=== PATIENT | female | born 1960 | race Caucasian/White ===

== ENCOUNTER 2023-06-21 03:44 | Inpatient (IN) ==
[2023-06-21] MEDS ORDERED: ACETAMINOPHEN 1,000 MG/100 ML VIAL IV STA (03:59)
[2023-06-21] MEDS ORDERED: FAMOTIDINE 20MG IV PUSH 20 MG/5 ML SYR IV STA (03:59)
[2023-06-21] MEDS ORDERED: SODIUM CHLORIDE 0.9% 1,000 ML IV ONE (03:59)
--- NOTE | 2023-06-21 04:04 | Emergency Department Note ---
Impression & Plan Abdominal pain, Nausea & vomiting, Bowel obstruction ED Provider Note ED Provider Note NAME: SWAPNA CESPEDES AGE:63 SEX: Female : 1960 ARRIVES VIA: private vehicle INFORMANT: Patient ED PROVIDER(s): Elaina Encinas DO CHIEF COMPLAINT: abd pain, nausea and vomiting HPI: This is a 63-year-old female who presents emergency department due to concern for abdominal pain, nausea and vomiting. Patient states she felt well earlier in the day yesterday however symptoms began at 9 PM with a sudden upper abdominal discomfort followed by nausea vomiting. Patient states she had been vomiting over the last several hours approximately every 15 minutes or so. She denies noting any blood. She states no recent change in bowel movements and no diarrhea since her symptoms began. She states she does have a history of GERD, however no other GI problems. She states a potassium supplement was recently added to her medications, no other changes. She states there is someone who lives in her [facility] who does have COVID. No other recent URI symptoms. She states now the abdominal discomfort feels lower. No radiation into the back. PAST MEDICAL HISTORY:See Below PAST SURGICAL HISTORY:See Below FAMILY HISTORY:See Below SOCIAL HISTORY:See Below HOME MEDICATIONS:See Below ALLERGIES:See Below VITALS:See Below PHYSICAL EXAMINATION: GENERAL: alert, well appearing, well nourished, no distress, non-toxic EYE EXAM: normal conjunctiva, PERRL and EOM's grossly intact OROPHARYNX: no exudate, no erythema, lips, buccal mucosa, and tongue normal and mucous membranes are moist NECK: supple, no nuchal rigidity, no adenopathy, non-tender LUNGS: Clear to auscultation. Normal chest wall mechanics, no w/r/r HEART: no murmurs, S1 normal and S2 normal ABDOMEN: abdomen soft, discomfort with palpation of LLQ, normo-active bowel sounds, no masses, no rebound or guarding. BACK: Back is symmetrical on inspection and there is no deformity, no midline tenderness, no CVA tenderness. SKIN: no rashes, petechiae, orbruising UPPER EXTREMITIES: upper extremities are grossly normal. FROM, nml pulses b/l. LOWER EXTREMITIES: No pitting edema. FROM, nml pulses b/l. NEURO EXAM: Normal sensorium, cranial nerves II-XII grossly intact, normal speech, no facial droop,nogross weakness of arms, no gross weakness of legs. Gross sensation intact. No ataxia. Vital Signs: reviewed and remarkable Differential Diagnosis: viral syndrome, food borne illness, gastritis, peptic ulcer disease, GERD, gallbladder disease, pancreatitis, small bowel obstruction, acute coronary syndrome, pericarditis, ischemic bowel, irritable bowel syndrome, diverticulitis, malignancy, hernia, urinary tract infection, perforation, as well as others were considered MEDICAL DECISION MAKING: This is a 63-year-old female presents emergency room due to concern for acute onset of abdominal pain, nausea and vomiting. She was afebrile vital signs stable despite being ill appearing and holding an emesis bag. Labs drawn and sent, IV established, EKG and KUB performed bedside interpreted by me and patient monitored on telemetry. She was started on IV fluids and given IV Tylenol and IV famotidine initially. Patient did have some recurrence of nausea and IV Zofran was added. Due to unclear etiology of her symptoms initially patient was additionally sent for CT of the abdomen and pelvis. CT revealed a bowel obstruction with concern for 2 transition points. I did contact general surgery on-call due to concern for possible closed-loop obstruction. They felt patient could be started on typical conservative management and monitored and should there be any changes or worsening symptoms they would reevaluate the patient. Case discussed with on-call [facility] hospitalist team for additional evaluation and management. NG tube inserted at bedside. Patient continued on gentle IV fluid hydration. Patient updated on all results and plan, she verbalized understanding and was in agreement. Consultation(s): 0748: Discussed with Dr. Dalton, gen surg. Recommends NG tube and trial of conservative therapy. I did read him CT report and we discussed patient presentation and exam, vital signs, and labs. 0802: Discussed with Dr. Beckman, [facility] hospitalist team, for additional evaluation and mgmt. ER Treatment Provided: See below Diagnostics Interpreted By Me: -ECG: Normal sinus at 89, rightward axis, normal intervals, no acute ST/T wave changes -Cardiac Monitoring: An order was placed for continuous cardiac monitoring. The monitor shows a rate of 88 with normal sinus rhythm. -Laboratory studies: As stated above and show below. -Imaging studies: KUB: no def SBO Triage Nursing Note Reviewed Prior/Outside Records Reviewed Past Med/Surg History Medical History Carotid stenosis, left Falls frequently Prediabetes Orthostatic hypotension Sleep apnea Arthritis Asthma Environmental and seasonal allergies Hypothyroidism Dyslipidemia Hypertension Surgical History History of left-sided carotid endarterectomy History of bilateral tubal ligation H/O sinus surgery 2004 H/O: hysterectomy 2019 Ovarian cyst Ovarian cyst removed 08-26-19 History of appendectomy History of total abdominal hysterectomy and bilateral salpingo-oophorectomy H/O wisdom tooth extraction Family History Father , age 56 from [place] Heart disease Coronary heart disease Sister Hypertension Mother , age 46; Lupus nephritis?? 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 Beliefs That Will Affect Care: None marital status: / Current Living Situation: Alone Current Living Situation Comment: Home with dog on 2nd floor of condo, handicap accessible current occupational status: retired 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; was in [employer] 7 years How many Children do You have: 0 Other Information That Helps Us Care for You: No Feels Safe at Home: Yes Safety Concerns: Feels Safe At This Time Diet: vegetarian Assistive Devices: None Allergies Allergies Allergy/AdvReac Type Severity Reaction Status Date / Time adhesive Allergy blistering Unverified 06/21/23 08:49 on skin [id number] Reductase Allergy liver Unverified 06/21/23 08:49 Inhibitor enzymes go "crazy" Home Meds Home Medications Medication Instructions Recorded Confirmed aspirin 81 mg tablet,delayed 81 mg PO DAILY 12/02/19 06/21/23 release cholecalciferol (vitamin D3) 50 100 mcg PO DAILY 12/02/19 06/21/23 mcg (2,000 unit) capsule (Vitamin D3) diclofenac sodium 1 % topical gel 2 gm topical QID PRN Pain 12/02/19 06/21/23 ezetimibe 10 mg tablet 10 mg PO DAILY 12/02/19 06/21/23 fluticasone propionate 50 1 sprays intranasal DAILY 12/02/19 06/21/23 mcg/actuation nasal spray,suspension losartan 100 1 tab PO DAILY 12/02/19 06/21/23 mg-hydrochlorothiazide 25 mg tablet menthol 4 % topical gel (Biofreeze 1 appln topical TID PRN Pain 12/02/19 06/21/23 (menthol)) Saline Mist See Rx Instructions .Route .COMPLEX 06/21/23 06/21/23 Vitamin B12 Liquid 0.5 mg PO DAILY 06/21/23 06/21/23 bupropion HCl 150 mg 24 hr tablet, 150 mg PO QAM 06/21/23 06/21/23 extended release dexlansoprazole 30 mg 30 mg PO DAILY 06/21/23 06/21/23 capsule,biphase delayed release (Dexilant) levothyroxine 125 mcg tablet 125 mcg PO DAILY 06/21/23 06/21/23 multivitamin with minerals 1 tab PO DAILY 06/21/23 06/21/23 (Hair,Skin and Nails tablet) Previous Rx's Medication Instructions Recorded hydrocodone 5 mg-acetaminophen 325 1 - 2 tab PO Q6H PRN pain #12 tabs 04/17/20 mg tablet Results & Data (ED) Vital Signs Vital Signs - 24 hr 06/21/23 04:49 06/21/23 06:30 06/21/23 07:00 Pulse Rate 88 84 Pulse Rate from SpO2 Sensor 84 Respiratory Rate 16 Blood Pressure 155/86 H 151/73 H Blood Pressure Mean 109 114 Pulse Oximetry 93 Oxygen Delivery Method Room Air 06/21/23 07:00 06/21/23 07:30 06/21/23 07:31 Pulse Rate 80 84 Pulse Rate from SpO2 Sensor Respiratory Rate 16 20 Blood Pressure 149/102 H Blood Pressure Mean 128 Pulse Oximetry 96 96 Oxygen Delivery Method Room Air 06/21/23 07:31 Pulse Rate 89 Pulse Rate from SpO2 Sensor 88 Respiratory Rate 20 Blood Pressure Blood Pressure Mean Pulse Oximetry 95 Oxygen Delivery Method Laboratory Data 06/21/23 04:09 06/21/23 04:09 Lab Results 06/21/23 06/21/23 Range/Units 04:09 04:12 WBC 12.67 H (4.8-10.8) K/ul RBC 5.23 (4.20-5.40) M/uL Hgb 13.8 (12.0-16.0) g/dl Hct 42.1 (37.0-47.0) % MCV 80.5 (80.0-100.0) fL MCH 26.4 (25.0-34.0) pg MCHC 32.8 (32.0-36.0) g/dL RDW Std Deviation 42.7 (36.4-46.3) fL RDW Coeff of Lobo 14.6 H (11.5-14.5) % Plt Count 322 (130-400) K/uL MPV 9.3 L (9.4-12.4) fL Immature Gran % (Auto) 0.3 % Neut % (Auto) 89.7 % Lymph % (Auto) 5.9 % Titus % (Auto) 3.6 % Eos % (Auto) 0.2 % Baso % (Auto) 0.3 % Neut # (Auto) 11.36 H (1.40-6.50) K/uL Lymph # (Auto) 0.75 L (1.20-3.40) K/uL Titus # (Auto) 0.46 (0.11-0.59) K/uL Eos # (Auto) 0.02 (0.00-0.50) K/uL Baso # (Auto) 0.04 (0.00-0.20) K/uL Immature Gran # (Auto) 0.04 (0.01-0.20) K/uL Sodium 139 (136-145) mmol/L Potassium 3.3 L (3.5-5.1) mmol/L Chloride 99 (98-107) mmol/L Carbon Dioxide 32 (21-32) mmol/L Anion Gap 8 (3-11) BUN 18 (6-23) mg/dl Creatinine 1.10 (0.6-1.2) mg/dl Est Cr Clr Drug Dosing 51.9 ml/min Est GFR ( Amer) 61.4 ml/min Est GFR (Non-Af Amer) 53.0 ml/min BUN/Creatinine Ratio 16.4 (10-20) Glucose 163 H (70-99(Fasting)) mg/dl Calcium 10.6 H (8.6-10.3) mg/dl Magnesium 1.8 (1.7-2.4) mg/dl Total Bilirubin 0.4 (0.2-1.0) mg/dl AST 26 (13-39) U/L ALT 30 (7-52) U/L Alkaline Phosphatase 128 H (34-104) U/L Troponin I High Sens 5.5 (0-14) pg/ml Total Protein 7.7 (6.0-8.3) gm/dl Albumin 4.5 (3.4-5.0) gm/dl Globulin 3.2 (2.5-4.0) gm/dl Albumin/Globulin Ratio 1.4 (0.9-2) Lipase 32 (11-82) U/L TSH 0.762 (0.300-4.500) uIu/ml Adenovirus (PCR) Not Detected (NotDetected) B. pertussis DNA (PCR) Not Detected (NotDetected) B.parapertussis DNA PCR Not Detected (NotDetected) C. pneumoniae DNA (PCR) Not Detected (NotDetected) Coronavirus OC43 (PCR) Not Detected (NotDetected) Coronavirus HKU1 (PCR) Not Detected (NotDetected) Coronavirus 229E (PCR) Not Detected (NotDetected) SARS-CoV-2 (PCR) Not Detected (NotDetected) Coronavirus NL63 (PCR) Not Detected (NotDetected) Human Metapneumovir PCR Not Detected (NotDetected) Influenza Type A (PCR) Not Detected (NotDetected) Influenza Type B (PCR) Not Detected (NotDetected) M. pneumoniae (PCR) Not Detected (NotDetected) Parainfluenza 1 (PCR) Not Detected (NotDetected) Parainfluenza 2 (PCR) Not Detected (NotDetected) Parainfluenza 3 (PCR) Not Detected (NotDetected) Parainfluenza 4 (PCR) Not Detected (NotDetected) RSV (PCR) Not Detected (NotDetected) Entero/Rhino (PCR) Not Detected (NotDetected) Administered Medications Diclofenac Sodium (Diclofenac Sod 1% Gel 100 Gm Tube) 2 gm EXT QID LIZ; Protocol Stop: 07/21/23 09:40 Last Admin: 06/21/23 20:53 Dose: Not Given Documented By: Admin: 06/21/23 16:14 Dose: Not Given Documented By: Admin: 06/21/23 12:35 Dose: Not Given Documented By: Admin: 06/21/23 11:10 Dose: Not Given Documented By: AGNES Fluticasone Propionate (Fluticasone Propionate Na Spr 16 Gm Btl) 1 sprays NA Q12H [facility] Stop: 07/21/23 09:40 Last Admin: 06/21/23 20:53 Dose: Not Given Documented By: Admin: 06/21/23 11:10 Dose: Not Given Documented By: AGNES Hydralazine HCl (Hydralazine Hcl 20 Mg/Ml Vial) 5 mg IV Q8H LIZ Stop: 07/21/23 10:59 Last Admin: 06/22/23 03:05 Dose: 5 mg Documented By: Admin: 06/21/23 18:24 Dose: 5 mg Documented By: Admin: 06/21/23 11:34 Dose: 5 mg Documented By: AGNES Potassium Chloride 20 meq/ (Lactated Ringer's) 1,010 mls @ 125 mls/hr IV .Q8H5M LIZ Stop: 07/21/23 09:59 Last Admin: 06/22/23 03:05 Dose: 125 mls/hr Documented By: Infusion: 06/22/23 03:04 Dose: Infused Documented By: Admin: 06/21/23 19:30 Dose: 125 mls/hr Documented By: Infusion: 06/21/23 19:28 Dose: Infused Documented By: Infusion: 06/21/23 11:54 Dose: Infused Documented By: Admin: 06/21/23 10:42 Dose: 125 mls/hr Documented By: AGNES Pantoprazole Sodium 40 mg/ (Syringe) 10 mls @ 5 mls/min IV DAILY@1100 LIZ Stop: 07/21/23 10:59 Last Admin: 06/21/23 12:33 Dose: 5 mls/min Documented By: AGNES Acetaminophen (Ofirmev) 1,000 mg in 100 mls @ 400 mls/hr IV Q8H PRN PRN Reason: pain or T>38 Stop: 06/24/23 10:45 Last Infusion: 06/21/23 22:19 Dose: Infused Documented By: Admin: 06/21/23 21:57 Dose: 400 mls/hr Documented By: Infusion: 06/21/23 11:31 Dose: Infused Documented By: Admin: 06/21/23 11:08 Dose: 400 mls/hr Documented By: AGNES Insulin Aspart (Insulin Aspart Per Unit Charge) 0 units SC Q6 LIZ Stop: 07/21/23 11:59 Last Admin: 06/22/23 00:00 Dose: Not Given Documented By: Admin: 06/21/23 18:36 Dose: Not Given Documented By: Admin: 06/21/23 12:07 Dose: Not Given Documented By: AGNES Morphine Sulfate (Morphine Sulfate 2 Mg/Ml Carp) 2 mg IV Q3H PRN PRN Reason: Pain Stop: 07/05/23 09:40 Last Admin: 06/21/23 16:10 Dose: 2 mg Documented By: AGNES Discontinued Medications Sodium Chloride (Nss) 1,000 mls @ 999 mls/hr IV .Q1H1M ONE Stop: 06/21/23 04:59 Last Infusion: 06/21/23 05:30 Dose: Infused Documented By: Admin: 06/21/23 04:21 Dose: 999 mls/hr Documented By: Famotidine (Pepcid 20mg Iv Push) 20 mg in 5 mls @ 2.5 mls/min IV NOW STA Stop: 06/21/23 04:00 Last Admin: 06/21/23 04:19 Dose: 2.5 mls/min Documented By: Acetaminophen (Ofirmev) 1,000 mg in 100 mls @ 400 mls/hr IV NOW STA Stop: 06/21/23 04:13 Last Infusion: 06/21/23 04:38 Dose: Infused Documented By: Admin: 06/21/23 04:20 Dose: 400 mls/hr Documented By: Sodium Chloride (Nss) 1,000 mls @ 125 mls/hr IV .Q8H LIZ Stop: 07/21/23 07:59 Last Infusion: 06/21/23 10:47 Dose: Infused Documented By: Admin: 06/21/23 08:04 Dose: 125 mls/hr Documented By: KARLI Potassium Chloride (K Andre / Wtr) 10 meq in 100 mls @ 100 mls/hr IV Q1H LIZ Stop: 06/21/23 10:59 Last Infusion: 06/21/23 11:58 Dose: Infused Documented By: Admin: 06/21/23 10:42 Dose: 100 mls/hr Documented By: Infusion: 06/21/23 10:21 Dose: Infused Documented By: Admin: 06/21/23 09:21 Dose: 100 mls/hr Documented By: KARLI Ioversol (Optiray 320 100ml) 100 ml IV ONCE ONE Stop: 06/21/23 05:52 Last Admin: 06/21/23 05:51 Dose: 91 ml Documented By: JULIUS Ondansetron HCl (Ondansetron Inj 2 Mg/Ml 2 Ml Vial) 4 mg IV NOW STA Stop: 06/21/23 07:13 Last Admin: 06/21/23 07:20 Dose: 4 mg Documented By: KARLI Imaging Data Radiologist's Impression: KUB X-Ray 06/21/23 03:59 KUB CLINICAL HISTORY: Generalized abdominal pain. Vomiting. FINDINGS: 2 AP, portable, supine abdominal radiographs are obtained. No prior studies are available for comparison at the time of dictation. There is a nonspecific bowel gas pattern. Distended and gas-filled loops of small bowel measure up to 3.4 cm. Stool is noted in the right colon. No evidence of intraperitoneal free air is seen on these supine images. There are no abnormal abdominal calcifications. The skeletal structures are osteopenic and appear intact. There is moderate lumbosacral spondylosis. IMPRESSION: Nonspecific bowel gas pattern with mildly distended loops of small bowel in the mid abdomen. Correlate clinically. Electronically signed by: Olayinka Bateman M.D. 06/21/2023 7:15 AM Abdomen/Pelvis CT 06/21/23 05:29 CT SCAN OF THE ABDOMEN AND PELVIS WITH IV CONTRAST CLINICAL HISTORY: Generalized abdominal pain. Nausea and vomiting. COMPARISON STUDY: Abdominal radiograph dated 06/21/2023. TECHNIQUE: Following the IV administration of 91 cc of Optiray 320, CT scan of the abdomen and pelvis is performed from the lung bases to the proximal femora. Images are reviewed in the axial, sagittal, and coronal planes. IV contrast was administered without complication. A dose lowering technique was utilized adhering to the principles of ALARA. CT DOSE: 1288.15 mGy.cm FINDINGS: Lung bases: The heart is normal in size and without pericardial effusion. Emphysema is suspected. There are minimal patchy groundglass opacities at the right lung base. The lung bases are otherwise clear. There is a moderate hiatal hernia. Liver: The contrast-enhanced liver is normal in size, contour, and attenuation. There is no intrahepatic biliary ductal dilatation. The hepatic veins and portal veins are patent. Gallbladder: Unremarkable. Spleen: Normal in size and attenuation. Pancreas: Unremarkable. Adrenal glands: Unremarkable. Kidneys: There is cortical scarring identified in the right kidney suggestive of previous renal infarct. The contrast enhanced kidneys are otherwise normal in size and without hydronephrosis. The kidneys enhance symmetrically. Abdominal vasculature: The abdominal aorta is normal in course and caliber noting moderate to advanced atherosclerotic calcification. Bowel: Very distended and fluid-filled loops of small bowel in mid abdomen which measure up to 3.2 cm diameter. There is a complex transition point in the upper a transition point is also suggested in the left lower quadrant on image #164. Findings are consistent with a complex of small bowel obstruction. A closed loop type obstruction is not excluded. The distal small bowel is decompressed. There is interloop fluid. No pneumatosis intestinalis or portal venous gas is seen. No focally thick-walled bowel loops are identified. Pelvis seen on image #202. There is mild diverticulosis of the right colon without CT evidence of acute diverticulitis. The appendix is not identified and reported surgically absent. Peritoneum: No intraperitoneal free air is identified. There is trace free fluid in the pelvis. Lymphadenopathy: None. Pelvic viscera: The bladder is normal as visualized. The uterus is surgically absent. No adnexal lesion is seen. Skeletal structures: The skeletal structures are osteopenic. There is [id number] lumbosacral spondylosis. Bilateral pars defects are noted at L5. No lytic or blastic lesions are seen. IMPRESSION: 1. Findings are consistent with a complex small bowel obstruction as above. There are 2 apparent transition points, and a closed loop type obstruction is not excluded. Surgical evaluation is advised. 2. There is interloop fluid and a small volume of free fluid in the pelvis. 3. No intraperitoneal free air is identified. There is no pneumatosis intestinalis, portal venous gas, or focally thick-walled bowel loops. 3. Moderate hiatal hernia. 4. Minimal patchy groundglass opacities of the right lung base are likely on an infectious or inflammatory basis. Correlate clinically. 5. Chronic right renal infarct. 6. Additional findings as above. ACT 112: Negative or not required by law. Electronically signed by: Olayinka Bateman M.D. 06/21/2023 6:53 AM Discharge Plan Visit Data Chief Complaint: Vomiting Stated Complaint: HEADACHE,VOMITING,HIGH HR ED Provider: Elaina Encinas Discharge Problem: Abdominal pain, Nausea & vomiting, Bowel obstruction Patient Disposition: Admitted As Inpatient Discharge Instructions Interventions: ED Discharge Assessment Last Done: 06/21/23 09:25
[2023-06-21 04:33] LABS: Basophils # (auto) 0.04 K/uL (0.00-0.20); Basophils % (auto) 0.3 %; Eosinophils # (auto) 0.02 K/uL (0.00-0.50); Eosinophils % (auto) 0.2 %; Hematocrit (blood only) 42.1 % (37.0-47.0); Hemoglobin 13.8 g/dl (12.0-16.0); Immature Granulocytes # (auto) 0.04 K/uL (0.01-0.20); Immature Granulocytes % (auto) 0.3 %; Lymphocytes # (auto) 0.75 K/uL (1.20-3.40); Lymphocytes % (auto) 5.9 %; Mean Corpuscular Hemoglobin 26.4 pg (25.0-34.0); Mean Corpuscular Hgb Conc 32.8 g/dL (32.0-36.0); Mean Corpuscular Volume 80.5 fL (80.0-100.0); Mean Platelet Volume 9.3 fL (9.4-12.4); Monocytes # (auto) 0.46 K/uL (0.11-0.59); Monocytes % (auto) 3.6 %; Neutrophils # (auto) 11.36 K/uL (1.40-6.50); Neutrophils % (auto) 89.7 %; Platelet Count 322 K/uL (130-400); RDW Coefficient of Variation 14.6 % (11.5-14.5); RDW Standard Deviation 42.7 fL (36.4-46.3); Red Blood Count 5.23 M/uL (4.20-5.40); White Blood Count 12.67 K/ul (4.8-10.8)
[2023-06-21 04:50] LABS: Albumin Globulin Ratio 1.4 (0.9-2); Albumin Level 4.5 gm/dl (3.4-5.0); BUN Creatinine Ratio 16.4 (10-20); Bilirubin,Total 0.4 mg/dl (0.2-1.0); Calcium 10.6 mg/dl (8.6-10.3); Creatinine Clr Calc Pharmacy 51.9 ml/min; Est GFR (African American) 61.4 ml/min; Globulin 3.2 gm/dl (2.5-4.0); Magnesium 1.8 mg/dl (1.7-2.4); Potassium 3.3 mmol/L (3.5-5.1); Total Protein 7.7 gm/dl (6.0-8.3)
[2023-06-21 04:56] LABS: Troponin I High Sensitivity 5.5 pg/ml (0-14)
[2023-06-21 05:06] LABS: Thyroid Stimulating Hormone 0.762 uIu/ml (0.300-4.500)
[2023-06-21 05:17] LABS: Adenovirus PCR Not Detected (NotDetected); Bordetella parapertussis PCR Not Detected (NotDetected); Bordetella pertussis PCR Not Detected (NotDetected); Chlamydia pneumoniae PCR Not Detected (NotDetected); Coronavirus 229E PCR Not Detected (NotDetected); Coronavirus CoV-2 (COVID19)PCR Not Detected (NotDetected); Coronavirus HKU1 PCR Not Detected (NotDetected); Coronavirus NL63 PCR Not Detected (NotDetected); Coronavirus OC43PCR Not Detected (NotDetected); Human Metapneumovirus PCR Not Detected (NotDetected); Influenza A PCR Not Detected (NotDetected); Influenza B PCR Not Detected (NotDetected); Mycoplasma pneumoniae PCR Not Detected (NotDetected); Parainfluenza Virus 1 PCR Not Detected (NotDetected); Parainfluenza Virus 2 PCR Not Detected (NotDetected); Parainfluenza Virus 3 PCR Not Detected (NotDetected); Parainfluenza Virus 4 PCR Not Detected (NotDetected); Respiratory Syncytial VirusPCR Not Detected (NotDetected); Rhinovirus/Enterovirus PCR Not Detected (NotDetected)
[2023-06-21] MEDS ORDERED: OPTIRAY 320 100ml IV ONE (05:51)
--- NOTE | 2023-06-21 06:56 | CT Scan Report ---
CT SCAN OF THE ABDOMEN AND PELVIS WITH IV CONTRAST CLINICAL HISTORY: Generalized abdominal pain. Nausea and vomiting. COMPARISON STUDY: Abdominal radiograph dated 06/21/2023. TECHNIQUE: Following the IV administration of 91 cc of Optiray 320, CT scan of the abdomen and pelvi s is performed from the lung bases to the proximal femora. Images are reviewed in the axial, sagittal , and coronal planes. IV contrast was administered without complication. A dose lowering technique wa s utilized adhering to the principles of ALARA. CT DOSE: 1288.15 mGy.cm FINDINGS: Lung bases: The heart is normal in size and without pericardial effusion. Emphysema is suspected. The re are minimal patchy groundglass opacities at the right lung base. The lung bases are otherwise xiomara r. There is a moderate hiatal hernia. Liver: The contrast-enhanced liver is normal in size, contour, and attenuation. There is no intrahepa tic biliary ductal dilatation. The hepatic veins and portal veins are patent. Gallbladder: Unremarkable. Spleen: Normal in size and attenuation. Pancreas: Unremarkable. Adrenal glands: Unremarkable. Kidneys: There is cortical scarring identified in the right kidney suggestive of previous renal infar ct. The contrast enhanced kidneys are otherwise normal in size and without hydronephrosis. The kidne ys enhance symmetrically. Abdominal vasculature: The abdominal aorta is normal in course and caliber noting moderate to advance d atherosclerotic calcification. Bowel: Very distended and fluid-filled loops of small bowel in mid abdomen which measure up to 3.2 cm diameter. There is a complex transition point in the upper a transition point is also suggested in t he left lower quadrant on image #164. Findings are consistent with a complex of small bowel obstructi on. A closed loop type obstruction is not excluded. The distal small bowel is decompressed. There is interloop fluid. No pneumatosis intestinalis or portal venous gas is seen. No focally thick-walled tara wel loops are identified. Pelvis seen on image #202. There is mild diverticulosis of the right colon without CT evidence of acute diverticulitis. The appendix is not identified and reported surgically absent. Peritoneum: No intraperitoneal free air is identified. There is trace free fluid in the pelvis. Lymphadenopathy: None. Pelvic viscera: The bladder is normal as visualized. The uterus is surgically absent. No adnexal lesi on is seen. Skeletal structures: The skeletal structures are osteopenic. There is tpif-gb-[id number] lumbosacral sp ondylosis. Bilateral pars defects are noted at L5. No lytic or blastic lesions are seen. IMPRESSION: 1. Findings are consistent with a complex small bowel obstruction as above. There are 2 apparent rosas sition points, and a closed loop type obstruction is not excluded. Surgical evaluation is advised. 2. There is interloop fluid and a small volume of free fluid in the pelvis. 3. No intraperitoneal free air is identified. There is no pneumatosis intestinalis, portal venous gas , or focally thick-walled bowel loops. 3. Moderate hiatal hernia. 4. Minimal patchy groundglass opacities of the right lung base are likely on an infectious or inflamm atory basis. Correlate clinically. 5. Chronic right renal infarct. 6. Additional findings as above. ACT 112: Negative or not required by law. Electronically signed by: Olayinka Bateman M.D. 06/21/2023 6:53 AM
[2023-06-21] MEDS ORDERED: ONDANSETRON INJ 2 MG/ML 2 ML VIAL IV STA (07:12)
--- NOTE | 2023-06-21 07:17 | XRay Report ---
KUB CLINICAL HISTORY: Generalized abdominal pain. Vomiting. FINDINGS: 2 AP, portable, supine abdominal radiographs are obtained. No prior studies are available f or comparison at the time of dictation. There is a nonspecific bowel gas pattern. Distended and gas-f illed loops of small bowel measure up to 3.4 cm. Stool is noted in the right colon. No evidence of in traperitoneal free air is seen on these supine images. There are no abnormal abdominal calcifications . The skeletal structures are osteopenic and appear intact. There is moderate lumbosacral spondylosis . IMPRESSION: Nonspecific bowel gas pattern with mildly distended loops of small bowel in the mid abdom en. Correlate clinically. Electronically signed by: Olayinka Bateman M.D. 06/21/2023 7:15 AM
[2023-06-21] MEDS ORDERED: SODIUM CHLORIDE 0.9% 1,000 ML IV SCH (08:00)
--- NOTE | 2023-06-21 08:03 | History & Physical Report ---
Date of Service June 21, 2023 Assessment & Plan (1) Small bowel obstruction: Plan: Likely on the basis of adhesions from prior abdominal/pelvic surgeries (appy, ROSALIO, BSO, etc). ?[address] with possible closed loop obstruction? Gen surg has been consulted - defer management of SBO to them. NG tube has been placed; f/u KUB x-ray with good position of tube. Copious IV hydration. Pain meds. Anti-emetics. Serial exams. (2) Hypertension: Plan: Hold PO meds. In david - hydralazine 5mg IV q8h; titrate as needed. (3) Dyslipidemia: Plan: Hold zetia. (4) Hypothyroidism: Plan: Hold PO synthroid. If she remains NPO for a prolonged period of time then change to IV formulation and give at least 3 days/week. TSH today wnl. (5) Diabetes: Plan: Patient reports she is a pre-diabetic. Will check a1c in am. In meantime - q6h BSGs. Loose novolog SSI coverage. (6) Arthritis: Plan: Knees, etc. Cont use of voltaren gel qid prn. (7) Hypercalcemia: Plan: 2nd to dehydration? 2nd to HCTZ use? Hold HCTZ. Isotonic fluids. Repeat total calcium level am. (8) Abnormal finding on lung imaging: Plan: Minimal patchy infiltrates are seen on the lung cuts from the CT abd/pelvis. These are in the RLL. She had copious vomiting overnight - perhaps due to aspiration in the midst of vomiting?? Watch closely for development of a pneumonia process. Resp BioFire was fully negative. O2 sats in RA wnl. (9) DVT prophylaxis: Plan: Lovenox 40mg daily (10) Carotid stenosis, left: Plan: s/p CEA with patch per patient's recollection. Has had surveillance u/s or CTAs since her surgery? (done via [employer] system or [employer] system to her recollection) (11) Falls frequently: Plan: Patient is having episodes of dizziness which then lead to "hearing her blood thumping in her head" and getting abnormal sensations in her legs. These episodes then result in falls. Has had numerous falls of late. This led to a work-up including a tilt table test. The latter showed mild orthostatic hypotension. I am uncertain if orthostatic hypotension really explains these falls. In light of carotid disease at some point she should have CTAs head/neck. (12) Orthostatic hypotension: Plan: Recently underwent tilt table test showing mild orthostasis. Plan appreciate gen surgery assistance recheck labs am History of Present Illness Chief Complaint: nausea, vomiting, abdominal pain Primary Care Provider: [facility] 63yo female with h/o carotid stenosis on left s/p CEA with ?patch angioplasty, pre-DM, HTN, hyperlipidemia, prior tobacco use, and ROSALIO/BSO/appendectomy due to very large but benign ovarian tumor ([place], [place] - 2019) presents with the acute onset of nausea, prolific vomiting, and generalized abdominal pain starting last night about 9pm. Denies any fevers/chills/dyspnea/cough/chest pain/hematemesis/bilious emesis/BRBPR. She had noted increased burping throughout the day yesterday prior to the abdominal pain & N/V starting. She drove herself to the ER here early this am due to the above symptoms. CT abd/pelvis shows a SBO with 2 transition points per radiology. During my assessment she just had her NG tube inserted. She has not vomited since arrival to the ER. Allergies Allergy/AdvReac Type Severity Reaction Status Date / Time adhesive Allergy blistering Unverified 06/21/23 08:49 on skin Cfqrxda-HAN-AwZ Reductase Allergy liver Unverified 06/21/23 08:49 Inhibitor enzymes go "crazy" Home Medications Medication Instructions Recorded Confirmed Type hydrocodone 5 mg-acetaminophen 325 1 - 2 tab PO Q6H PRN pain #12 tabs 11/28/19 06/21/23 Rx mg tablet aspirin 81 mg tablet,delayed 81 mg PO DAILY 12/02/19 06/21/23 History release cholecalciferol (vitamin D3) 50 100 mcg PO DAILY 12/02/19 06/21/23 History mcg (2,000 unit) capsule (Vitamin D3) diclofenac sodium 1 % topical gel 2 gm topical QID PRN Pain 12/02/19 06/21/23 History ezetimibe 10 mg tablet 10 mg PO DAILY 12/02/19 06/21/23 History fluticasone propionate 50 1 sprays intranasal DAILY 12/02/19 06/21/23 History mcg/actuation nasal spray,suspension losartan 100 1 tab PO DAILY 12/02/19 06/21/23 History mg-hydrochlorothiazide 25 mg tablet menthol 4 % topical gel (Biofreeze 1 appln topical TID PRN Pain 12/02/19 06/21/23 History (menthol)) Saline Mist See Rx Instructions .Route .COMPLEX 06/21/23 06/21/23 History Vitamin B12 Liquid 0.5 mg PO DAILY 06/21/23 06/21/23 History bupropion HCl 150 mg 24 hr tablet, 150 mg PO QAM 06/21/23 06/21/23 History extended release dexlansoprazole 30 mg 30 mg PO DAILY 06/21/23 06/21/23 History capsule,biphase delayed release (Dexilant) levothyroxine 125 mcg tablet 125 mcg PO DAILY 06/21/23 06/21/23 History multivitamin with minerals 1 tab PO DAILY 06/21/23 06/21/23 History (Hair,Skin and Nails tablet) Past Med/Surg History Medical History (Updated 06/22/23 @ 05:30 by David Beckman MD) Carotid stenosis, left Falls frequently Orthostatic hypotension Prediabetes Sleep apnea Arthritis Asthma Environmental and seasonal allergies Hypothyroidism Dyslipidemia Hypertension Surgical History History of left-sided carotid endarterectomy History of bilateral tubal ligation H/O sinus surgery 2004 H/O: hysterectomy 2018 Ovarian cyst Ovarian cyst removed 08-26-19 History of appendectomy History of total abdominal hysterectomy and bilateral salpingo-oophorectomy H/O wisdom tooth extraction Family History Father , age 56 from [place] Heart disease Coronary heart disease Sister Hypertension Mother , age 46; Lupus nephritis?? Kidney disease Other Breast cancer Cancer Colorectal cancer Social History (Updated 06/21/23 @ 09:16 by David Beckman MD) Smoking Status: Former smoker Age Started Using Tobacco: 16; Age Quit Using Tobacco: 34; packs per day: 1; Smoking End Date: 1989; Second Hand Exposure: No; Do You Dip or Chew Tobacco: No; Tobacco Cessation Education Requested by Patient: No Hx Alcohol Use: Yes Alcohol type: beer, wine and hard liquor Hx Substance Use: No Preferred Language: Indonesian Communication Ability: Effective First Cook Required: No Beliefs That Will Affect Care: None marital status: / Current Living Situation: Alone Current Living Situation Comment: Home with dog on 2nd floor of condo, handicap accessible current occupational status: retired 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; 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 [employer] x 7 years How many Children do You have: 0 Other Information That Helps Us Care for You: No Feels Safe at Home: Yes Safety Concerns: Feels Safe At This Time Diet: vegetarian Assistive Devices: None Review of Systems Review of Systems: gen - no fevers or chills; appetite had been wnl prior to yesterday HENT - chronic sinus congestion/allergies CV - no chest pains pulm - no chronic dyspnea or AMIN; no cough GI - nausea/emesis/abd pain beginning last pm about 9pm - no dysuria musculo - chronic knee and hip pain b/l skin - dry patches scalp neuro - no headaches; episodes of dizziness with standing/walking; heart her blood thumping in her head during spells; these spells lead to falls endo - denies diabetes; she is pre-diabetic Physical Exam Physical Exam: gen - looks tired, uncomfortable (NG Tube was just placed) - but awake/alert x 3 eyes - PERRL HENT - mouth with MMM, NG tube in place in nose neck - no JVD, +bruit on right (very soft), no lymph nodes heart - RRR, s1 s2, no murmur lungs - CTA b/l abd - mildy distended, BS+, NT, no HSM, no peritoneal signs ext - no edema, pulses 2+ b/l skin - no rash; I could not appreciate any dry plaques in scalp neuro - strength 5/5 x 4 exts; DTRs 2+ b/l psych - a/o x 3 lymph - no cervical lymph nodes b/l Results & Data Results & Data Vital Signs (Past 12 Hours) Vital Signs Temp Pulse Resp BP Pulse Ox O2 Del Method 06/21/23 07:00 80 16 96 Room Air 06/21/23 07:00 151/73 H 06/21/23 06:30 84 16 155/86 H 93 Room Air 06/21/23 04:49 88 06/21/23 03:49 36.3 C L 109 H 18 154/87 H 92 Room Air Laboratory Results Laboratory Results - last 24 hr 06/21/23 06/21/23 06/21/23 04:09 04:12 08:04 WBC 12.67 H RBC 5.23 Hgb 13.8 Hct 42.1 MCV 80.5 MCH 26.4 MCHC 32.8 RDW Std Deviation 42.7 RDW Coeff of Lobo 14.6 H Plt Count 322 MPV 9.3 L Immature Gran % (Auto) 0.3 Neut % (Auto) 89.7 Lymph % (Auto) 5.9 [place] % (Auto) 3.6 Eos % (Auto) 0.2 Baso % (Auto) 0.3 Neut # (Auto) 11.36 H Lymph # (Auto) 0.75 L [place] # (Auto) 0.46 Eos # (Auto) 0.02 Baso # (Auto) 0.04 Immature Gran # (Auto) 0.04 Sodium 139 Potassium 3.3 L Chloride 99 Carbon Dioxide 32 Anion Gap 8 BUN 18 Creatinine 1.10 Est Cr Clr Drug Dosing 51.9 Est GFR ( Amer) 61.4 Est GFR (Non-Af Amer) 53.0 BUN/Creatinine Ratio 16.4 Glucose 163 H Lactate 0.8 Calcium 10.6 H Magnesium 1.8 Total Bilirubin 0.4 AST 26 ALT 30 Alkaline Phosphatase 128 H Troponin I High Sens 5.5 Total Protein 7.7 Albumin 4.5 Globulin 3.2 Albumin/Globulin Ratio 1.4 Lipase 32 TSH 0.762 Adenovirus (PCR) Not Detected B. pertussis DNA (PCR) Not Detected B.parapertussis DNA PCR Not Detected C. pneumoniae DNA (PCR) Not Detected Coronavirus OC43 (PCR) Not Detected Coronavirus HKU1 (PCR) Not Detected Coronavirus 229E (PCR) Not Detected SARS-CoV-2 (PCR) Not Detected Coronavirus NL63 (PCR) Not Detected Human Metapneumovir PCR Not Detected Influenza Type A (PCR) Not Detected Influenza Type B (PCR) Not Detected M. pneumoniae (PCR) Not Detected Parainfluenza 1 (PCR) Not Detected Parainfluenza 2 (PCR) Not Detected Parainfluenza 3 (PCR) Not Detected Parainfluenza 4 (PCR) Not Detected RSV (PCR) Not Detected Entero/Rhino (PCR) Not Detected Diagnostic Findings KUB X-Ray 06/21/23 03:59 KUB CLINICAL HISTORY: Generalized abdominal pain. Vomiting. FINDINGS: 2 AP, portable, supine abdominal radiographs are obtained. No prior studies are available for comparison at the time of dictation. There is a nonspecific bowel gas pattern. Distended and gas-filled loops of small bowel measure up to 3.4 cm. Stool is noted in the right colon. No evidence of intraperitoneal free air is seen on these supine images. There are no abnormal abdominal calcifications. The skeletal structures are osteopenic and appear intact. There is moderate lumbosacral spondylosis. IMPRESSION: Nonspecific bowel gas pattern with mildly distended loops of small bowel in the mid abdomen. Correlate clinically. Electronically signed by: Olayinka Bateman M.D. 06/21/2023 7:15 AM Abdomen/Pelvis CT 06/21/23 05:29 CT SCAN OF THE ABDOMEN AND PELVIS WITH IV CONTRAST CLINICAL HISTORY: Generalized abdominal pain. Nausea and vomiting. COMPARISON STUDY: Abdominal radiograph dated 06/21/2023. TECHNIQUE: Following the IV administration of 91 cc of Optiray 320, CT scan of the abdomen and pelvis is performed from the lung bases to the proximal femora. Images are reviewed in the axial, sagittal, and coronal planes. IV contrast was administered without complication. A dose lowering technique was utilized adhering to the principles of ALARA. CT DOSE: 1288.15 mGy.cm FINDINGS: Lung bases: The heart is normal in size and without pericardial effusion. Emphysema is suspected. There are minimal patchy groundglass opacities at the right lung base. The lung bases are otherwise clear. There is a moderate hiatal hernia. Liver: The contrast-enhanced liver is normal in size, contour, and attenuation. There is no intrahepatic biliary ductal dilatation. The hepatic veins and portal veins are patent. Gallbladder: Unremarkable. Spleen: Normal in size and attenuation. Pancreas: Unremarkable. Adrenal glands: Unremarkable. Kidneys: There is cortical scarring identified in the right kidney suggestive of previous renal infarct. The contrast enhanced kidneys are otherwise normal in size and without hydronephrosis. The kidneys enhance symmetrically. Abdominal vasculature: The abdominal aorta is normal in course and caliber noting moderate to advanced atherosclerotic calcification. Bowel: Very distended and fluid-filled loops of small bowel in mid abdomen which measure up to 3.2 cm diameter. There is a complex transition point in the upper a transition point is also suggested in the left lower quadrant on image #164. Findings are consistent with a complex of small bowel obstruction. A closed loop type obstruction is not excluded. The distal small bowel is decompressed. There is interloop fluid. No pneumatosis intestinalis or portal venous gas is seen. No focally thick-walled bowel loops are identified. Pelvis seen on image #202. There is mild diverticulosis of the right colon without CT evidence of acute diverticulitis. The appendix is not identified and reported surgically absent. Peritoneum: No intraperitoneal free air is identified. There is trace free fluid in the pelvis. Lymphadenopathy: None. Pelvic viscera: The bladder is normal as visualized. The uterus is surgically absent. No adnexal lesion is seen. Skeletal structures: The skeletal structures are osteopenic. There is [id number] lumbosacral spondylosis. Bilateral pars defects are noted at L5. No lytic or blastic lesions are seen. IMPRESSION: 1. Findings are consistent with a complex small bowel obstruction as above. There are 2 apparent transition points, and a closed loop type obstruction is not excluded. Surgical evaluation is advised. 2. There is interloop fluid and a small volume of free fluid in the pelvis. 3. No intraperitoneal free air is identified. There is no pneumatosis intestinalis, portal venous gas, or focally thick-walled bowel loops. 3. Moderate hiatal hernia. 4. Minimal patchy groundglass opacities of the right lung base are likely on an infectious or inflammatory basis. Correlate clinically. 5. Chronic right renal infarct. 6. Additional findings as above. ACT 112: Negative or not required by law. Electronically signed by: Olayinka Bateman M.D. 06/21/2023 6:53 AM EKG - NSR, right axis deviation, low voltage, no ST changes Code Status & VTE Plan Code Status full code but would not want prolonged mech ventilation PG Care Time/CCT Total # of Minutes Spent Total Time Spent with Patient: Total time spent is greater than 50% in coordination of care (as documented) at patient's floor/unit and/or counseling patient: Coding Level of Care Code 69103 INT INP/OBS CARE 3/75MIN Diagnoses Small bowel obstruction K56.609 Hypertension I10 Dyslipidemia E78.5 Hypothyroidism E03.9 Diabetes E11.9 Arthritis M19.90 Hypercalcemia E83.52 Abnormal finding on lung imaging R91.8 DVT prophylaxis Z29.9 Carotid stenosis, left I65.22 Falls frequently R29.6 Orthostatic hypotension I95.1
[2023-06-21] MEDS: POTASSIUM CHLORIDE / WTR 10 MEQ/100 ML PLCT IV SCH ×2 (09:21→10:42)
--- NOTE | 2023-06-21 09:36 | XRay Report ---
KUB CLINICAL HISTORY: Enteric tube placement. FINDINGS: 2 AP, portable, supine abdominal radiographs are obtained. Comparison is made with abdomina l radiographs and CT performed earlier the same day 06/21/2023. An enteric tube has been placed. The t ip projects below the diaphragm over the proximal stomach. Excreted IV contrast is seen within the re nal collecting systems and bladder. Again seen are distended and gas-filled loops of small bowel in t he mid abdomen which measure up to 3.8 cm in diameter. When correlated with the CT scan this is consi stent with a persistent small bowel obstruction. Fecal retention is noted in the right colon. No evid ence of intraperitoneal free air is seen on these supine images. There are no abnormal abdominal calc ifications. The skeletal structures are osteopenic and appear intact. There is moderate lumbosacral s pondylosis. IMPRESSION: 1. An enteric tube has been placed as above. 2. Persistent small bowel obstruction. Electronically signed by: Olayinka Bateman M.D. 06/21/2023 9:35 AM
[2023-06-21] MEDS ORDERED: ONDANSETRON INJ 2 MG/ML 2 ML VIAL IV PRN (09:41)
[2023-06-21] MEDS: POTASSIUM CHLORIDE 20 MEQ in LACTATED RINGER'S 1,000 ML IV SCH ×2 (10:42→19:30)
[2023-06-21] MEDS: ACETAMINOPHEN 1,000 MG/100 ML VIAL IV PRN ×2 (11:08→21:57)
[2023-06-21] MEDS: DICLOFENAC SOD 1% GEL 100 GM TUBE EXT SCH ×4 (11:10→20:53)
[2023-06-21] MEDS: FLUTICASONE PROPIONATE NA SPR 16 GM BTL SCH ×2 (11:10→20:53)
[2023-06-21] MEDS: hydrALAZINE HCL 20 MG/ML VIAL IV SCH ×2 (11:34→18:24)
[2023-06-21] MEDS: INSULIN ASPART PER UNIT CHARGE SC SCH ×2 (12:07→18:36)
--- NOTE | 2023-06-21 12:27 | Surgery Consultation ---
Date of Consultation June 21, 2023 Assessment & Plan (1) Small bowel obstruction: not toxic CT scan findings noted no signs or symptoms of ischemia ng in place symptomatically feels better no flatus yet con't IVF and ng decompression Present on Admission?: Yes History of Present Illness Attending Physician: David Beckman MD History of Present Illness Kasia is a 63yo female with s/p ROSALIO/BSO/appendectomy due to very large but benign ovarian tumor ([place], [place] - 2019) presents with the acute onset of nausea, vomiting, and generalized abdominal pain starting two days ago seen in ED and placed on IVF and NG decompression. The pain much improved but still no bowel function yret., She denies any fevers/chills/cough/chest pain/h ematemesis/bilious emesis/BRBPR. CT abd/pelvis shows a SBO with possibly 2 transition points per radiology. AF VSS. Allergies Allergy/AdvReac Type Severity Reaction Status Date / Time adhesive Allergy blistering Unverified 06/21/23 08:49 on skin [id number] Reductase Allergy liver Unverified 06/21/23 08:49 Inhibitor enzymes go "crazy" Home Medications Medication Instructions Recorded Confirmed Type hydrocodone 5 mg-acetaminophen 325 1 - 2 tab PO Q6H PRN pain #12 tabs 11/28/19 06/21/23 Rx mg tablet aspirin 81 mg tablet,delayed 81 mg PO DAILY 12/02/19 06/21/23 History release cholecalciferol (vitamin D3) 50 100 mcg PO DAILY 12/02/19 06/21/23 History mcg (2,000 unit) capsule (Vitamin D3) diclofenac sodium 1 % topical gel 2 gm topical QID PRN Pain 12/02/19 06/21/23 History ezetimibe 10 mg tablet 10 mg PO DAILY 12/02/19 06/21/23 History fluticasone propionate 50 1 sprays intranasal DAILY 12/02/19 06/21/23 History mcg/actuation nasal spray,suspension losartan 100 1 tab PO DAILY 12/02/19 06/21/23 History mg-hydrochlorothiazide 25 mg tablet menthol 4 % topical gel (Biofreeze 1 appln topical TID PRN Pain 12/02/19 06/21/23 History (menthol)) Saline Mist See Rx Instructions .Route .COMPLEX 06/21/23 06/21/23 History Vitamin B12 Liquid 0.5 mg PO DAILY 06/21/23 06/21/23 History bupropion HCl 150 mg 24 hr tablet, 150 mg PO QAM 06/21/23 06/21/23 History extended release dexlansoprazole 30 mg 30 mg PO DAILY 06/21/23 06/21/23 History capsule,biphase delayed release (Dexilant) levothyroxine 125 mcg tablet 125 mcg PO DAILY 06/21/23 06/21/23 History multivitamin with minerals 1 tab PO DAILY 06/21/23 06/21/23 History (Hair,Skin and Nails tablet) Patient History Medical History Carotid stenosis, left Falls frequently Prediabetes Orthostatic hypotension Sleep apnea Arthritis Asthma Environmental and seasonal allergies Hypothyroidism Dyslipidemia Hypertension Surgical History History of left-sided carotid endarterectomy History of bilateral tubal ligation H/O sinus surgery 2004 H/O: hysterectomy 2018 Ovarian cyst Ovarian cyst removed 08-26-19 History of appendectomy History of total abdominal hysterectomy and bilateral salpingo-oophorectomy H/O wisdom tooth extraction Family History Father , age 56 from [place] Heart disease Coronary heart disease Sister Hypertension Mother , age 46; Lupus nephritis?? Kidney disease Other Breast cancer Cancer Colorectal cancer Social History (Updated 06/21/23 @ 09:16 by David Beckman MD) Smoking Status: Former smoker Age Started Using Tobacco: 16; Age Quit Using Tobacco: 34; packs per day: 1; Smoking End Date: 1989; Second Hand Exposure: No; Do You Dip or Chew Tobacco: No; Tobacco Cessation Education Requested by Patient: No Hx Alcohol Use: Yes Alcohol type: beer, wine and hard liquor Hx Substance Use: No Preferred Language: Ivorian Communication Ability: Effective Internet Marketing Specialist Required: No Beliefs That Will Affect Care: None marital status: / Current Living Situation: Alone Current Living Situation Comment: Home with dog on 2nd floor of condo, handicap accessible current occupational status: retired 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; was in [employer] x 7 years How many Children do You have: 0 Other Information That Helps Us Care for You: No Feels Safe at Home: Yes Safety Concerns: Feels Safe At This Time Diet: vegetarian Assistive Devices: Glasses and Hearing Aid - Bilateral Review of Systems Constitutional: + anorexia; no fever and no chills Eyes: no problem reported Ear, Nose, Mouth, Throat: no problem reported Respiratory: no cough and no dyspnea Cardiovascular: no chest pain Gastrointestinal: + abdominal pain, + nausea, + vomiting a nd + change in bowel habits; no coffee ground emesis and no diarrhea/loose stools Genitourinary: no dysuria Musculoskeletal: no back pain and no neck pain Integumentary: no rash and no lesions Neurologic: no localized weakness and no generalized weakness Psychiatric: no behavioral changes Hematologic / Lymphatic: no easy bleeding and no easy bruising Physical Exam Constitutional: well developed and well nourished Eyes: PERRL, conjunctivae normal, anicteric sclerae ENMT: external ear and nose normal, oropharynx normal Neck: trachea midline Respiratory: normal respiratory effort, lungs clear to auscultation Cardiovascular: RRR, no murmur, no edema Gastrointestinal (Abdomen): Inspection/Auscultation: abdomen normal to inspection, normal bowel sounds and + abdominal surgical scar; abdomen not distended Percussion/Palpation: abdomen soft; abdomen nontender, no guarding and abdomen not rigid Musculoskeletal: Head/Neck/Chest: normocephalic and head atraumatic Skin: no rashes, warm and dry Psychiatric: Orientation: alert and oriented x 3 Results & Data Vital Signs (Past 12 Hours) Vital Signs Temp Pulse Pulse Resp BP BP Pulse Ox 06/21/23 12:05 156/67 H 06/21/23 11:11 158/85 H 06/21/23 09:30 36.8 C 80 16 171/80 H 94 06/21/23 09:25 06/21/23 09:00 169/97 H 06/21/23 09:00 85 16 94 06/21/23 08:49 87 06/21/23 08:30 145/97 H 06/21/23 08:25 156/99 H 06/21/23 08:05 102 H 18 156/99 H 96 06/21/23 07:31 89 20 95 06/21/23 07:31 149/102 H 06/21/23 07:30 84 20 96 06/21/23 07:00 80 16 96 06/21/23 07:00 151/73 H 06/21/23 06:30 84 16 155/86 H 93 06/21/23 04:49 88 06/21/23 03:49 36.3 C L 109 H 18 154/87 H 92 O2 Del Method 06/21/23 12:05 06/21/23 11:11 06/21/23 09:30 Room Air 06/21/23 09:25 Room Air 06/21/23 09:00 06/21/23 09:00 Room Air 06/21/23 08:49 06/21/23 08:30 06/21/23 08:25 06/21/23 08:05 06/21/23 07:31 06/21/23 07:31 06/21/23 07:30 06/21/23 07:00 Room Air 06/21/23 07:00 06/21/23 06:30 Room Air 06/21/23 04:49 06/21/23 03:49 Room Air Diagnostic Findings CT SCAN OF THE ABDOMEN AND PELVIS WITH IV CONTRAST CLINICAL HISTORY: Generalized abdominal pain. Nausea and vomiting. COMPARISON STUDY: Abdominal radiograph dated 06/21/2023. TECHNIQUE: Following the IV administration of 91 cc of Optiray 320, CT scan of the abdomen and pelvis is performed from the lung bases to the proximal femora. Images are reviewed in the axial, sagittal, and coronal planes. IV contrast was administered without complication. A dose lowering technique was utilized adhering to the principles of ALARA. CT DOSE: 1288.15 mGy.cm FINDINGS: Lung bases: The heart is normal in size and without pericardial effusion. Emphysema is suspected. There are minimal patchy groundglass opacities at the right lung base. The lung bases are otherwise clear. There is a moderate hiatal hernia. Liver: The contrast-enhanced liver is normal in size, contour, and attenuation. There is no intrahepatic biliary ductal dilatation. The hepatic veins and portal veins are patent. Gallbladder: Unremarkable. Spleen: Normal in size and attenuation. Pancreas: Unremarkable. Adrenal glands: Unremarkable. Kidneys: There is cortical scarring identified in the right kidney suggestive of previous renal infarct. The contrast enhanced kidneys are otherwise normal in size and without hydronephrosis. The kidneys enhance symmetrically. Abdominal vasculature: The abdominal aorta is normal in course and caliber noting moderate to advanced atherosclerotic calcification. Bowel: Very distended and fluid-filled loops of small bowel in mid abdomen which measure up to 3.2 cm diameter. There is a complex transition point in the upper a transition point is also suggested in the left lower quadrant on image #164. Findings are consistent with a complex of small bowel obstruction. A closed loop type obstruction is not excluded. The distal small bowel is decompressed. There is interloop fluid. No pneumatosis intestinalis or portal venous gas is seen. No focally thick-walled bowel loops are identified. Pelvis seen on image #202. There is mild diverticulosis of the right colon without CT evidence of acute diverticulitis. The appendix is not identified and reported surgically absent. Peritoneum: No intraperitoneal free air is identified. There is trace free fluid in the pelvis. Lymphadenopathy: None. Pelvic viscera: The bladder is normal as visualized. The uterus is surgically absent. No adnexal lesion is seen. Skeletal structures: The skeletal structures are osteopenic. There is [id number] lumbosacral spondylosis. Bilateral pars defects are noted at L5. No lytic or blastic lesions are seen. IMPRESSION: 1. Findings are consistent with a complex small bowel obstruction as above. There are 2 apparent transition points, and a closed loop type obstruction is not excluded. Surgical evaluation is advised. 2. There is interloop fluid and a small volume of free fluid in the pelvis. 3. No intraperitoneal free air is identified. There is no pneumatosis intestinalis, portal venous gas, or focally thick-walled bowel loops. 3. Moderate hiatal hernia. 4. Minimal patchy groundglass opacities of the right lung base are likely on an infectious or inflammatory basis. Correlate clinically. 5. Chronic right renal infarct.
[2023-06-21] MEDS: PANTOprazole 40 MG in SYRINGE 0 ML IV SCH (12:33)
--- NOTE | 2023-06-21 13:01 | Electrocardiogram Report ---
Test Reason : Blood Pressure : / mmHG Vent. Rate : 089 BPM Atrial Rate : 089 BPM P-R Int : 180 ms QRS Dur : 082 ms QT Int : 372 ms P-R-T Axes : 041 103 051 degrees QTc Int : 452 ms Poor data quality, interpretation may be adversely affected Normal sinus rhythm Rightward axis Low voltage QRS Abnormal ECG No previous ECGs available Confirmed by Rio Winn ([id number]) on 06/21/2023 1:00:56 PM Referred By: REFERRED SELF Confirmed By:Rio Winn
[2023-06-21] MEDS: MoRPHine SULFATE 2 MG/ML CARP IV PRN (16:10)
[2023-06-22] MEDS: hydrALAZINE HCL 20 MG/ML VIAL IV SCH ×3 (03:05→18:41)
[2023-06-22] MEDS: POTASSIUM CHLORIDE 20 MEQ in LACTATED RINGER'S 1,000 ML IV SCH ×3 (03:05→20:57)
[2023-06-22] MEDS: INSULIN ASPART PER UNIT CHARGE SC SCH ×5 (05:52→23:35)
[2023-06-22] MEDS: ACETAMINOPHEN 1,000 MG/100 ML VIAL IV PRN (05:57)
[2023-06-22 07:33] LABS: Basophils # (auto) 0.02 K/uL (0.00-0.20); Basophils % (auto) 0.3 %; Eosinophils # (auto) 0.07 K/uL (0.00-0.50); Eosinophils % (auto) 0.9 %; Hematocrit (blood only) 38.4 % (37.0-47.0); Hemoglobin 12.4 g/dl (12.0-16.0); Immature Granulocytes # (auto) 0.02 K/uL (0.01-0.20); Immature Granulocytes % (auto) 0.3 %; Lymphocytes # (auto) 0.96 K/uL (1.20-3.40); Lymphocytes % (auto) 12.5 %; Mean Corpuscular Hgb Conc 32.3 g/dL (32.0-36.0); Mean Corpuscular Volume 80.5 fL (80.0-100.0); Mean Platelet Volume 9.2 fL (9.4-12.4); Monocytes # (auto) 0.72 K/uL (0.11-0.59); Monocytes % (auto) 9.4 %; Neutrophils # (auto) 5.87 K/uL (1.40-6.50); Neutrophils % (auto) 76.6 %; Platelet Count 253 K/uL (130-400); RDW Standard Deviation 43.7 fL (36.4-46.3); Red Blood Count 4.77 M/uL (4.20-5.40); White Blood Count 7.66 K/ul (4.8-10.8)
[2023-06-22 07:55] LABS: BUN Creatinine Ratio 13.6 (10-20); Calcium 9.4 mg/dl (8.6-10.3); Creatinine Clr Calc Pharmacy 71.1 ml/min; Est GFR (Non-African American) 76.8 ml/min; Potassium 3.7 mmol/L (3.5-5.1)
[2023-06-22] MEDS: MoRPHine SULFATE 2 MG/ML CARP IV PRN (07:56)
[2023-06-22] MEDS ORDERED: hydrALAZINE HCL 20 MG/ML VIAL IV ONE (08:12)
[2023-06-22] MEDS: DICLOFENAC SOD 1% GEL 100 GM TUBE EXT SCH ×4 (08:44→20:57)
[2023-06-22] MEDS: ENOXAPARIN INJ 40 MG/0.4 ML SYR SQ SCH (08:45)
[2023-06-22] MEDS: FLUTICASONE PROPIONATE NA SPR 16 GM BTL SCH ×2 (08:46→20:57)
[2023-06-22 08:59] LABS: Estimated Average Glucose 128 mg/dl; Hemoglobin A1C 6.1 % (4.5-5.6)
[2023-06-22] MEDS: PANTOprazole 40 MG in SYRINGE 0 ML IV SCH (10:55)
--- NOTE | 2023-06-22 10:55 | Surgery Progress Note ---
Date of Service June 22, 2023 Assessment & Plan (1) Small bowel obstruction: Plan: + bm and flatus NGT with 200 cc this am abdominal pain improved Plan: Will do clamp trial given ct findings and ensure she continues to pass flatus with minimal pain Encouraged ambulating hallway continue med management Dr. Hebert covering this weekend Dr. Dalton has seen patient and agrees with above Admission and Anticipated Discharge Date Admission Date: June 21, 2023 Subjective feeling better other than headache and having the NGT no n,v + bowel movement last night passed gas x 2 this am abdominal pain minimal, some cramping prior to flatus this am urinating without difficulty Physical Exam Constitutional: WD/WN, vitals as above no acute distress and not ill appearing Respiratory: normal respiratory effort; no respiratory distress, no labored breathing and no retractions Gastrointestinal (Abdomen): Inspection/Auscultation: abdomen normal to inspection, + abdominal surgical scar (midline laparotomy scar) and + hypoactive bowel sounds; abdomen not distended and + abnormal bowel sounds Percussion/Palpation: + abdomen tender (RLQ on deep palpation) and abdomen soft; no guarding, abdomen not rigid and abdomen not firm Skin: no rashes, warm and dry Psychiatric: Orientation: alert and oriented x 3 Results & Data Vital Signs (Past 12 Hours) Vital Signs Temp Pulse Resp BP Pulse Ox O2 Del Method 06/22/23 10:52 171/78 H 06/22/23 07:50 36.8 C 86 16 175/77 H 94 Room Air 06/22/23 03:02 36.9 C 89 15 157/93 H 95 Room Air Laboratory Results 06/22/23 06/22/23 06/21/23 Range/Units 07:13 05:49 23:56 WBC 7.66 (4.8-10.8) K/ul RBC 4.77 (4.20-5.40) M/uL Hgb 12.4 (12.0-16.0) g/dl Hct 38.4 (37.0-47.0) % MCV 80.5 (80.0-100.0) fL MCH 26.0 (25.0-34.0) pg MCHC 32.3 (32.0-36.0) g/dL RDW Std Deviation 43.7 (36.4-46.3) fL RDW Coeff of Lobo 15.0 H (11.5-14.5) % Plt Count 253 (130-400) K/uL MPV 9.2 L (9.4-12.4) fL Immature Gran % (Auto) 0.3 % Neut % (Auto) 76.6 % Lymph % (Auto) 12.5 % [place] % (Auto) 9.4 % Eos % (Auto) 0.9 % Baso % (Auto) 0.3 % Neut # (Auto) 5.87 (1.40-6.50) K/uL Lymph # (Auto) 0.96 L (1.20-3.40) K/uL [place] # (Auto) 0.72 H (0.11-0.59) K/uL Eos # (Auto) 0.07 (0.00-0.50) K/uL Baso # (Auto) 0.02 (0.00-0.20) K/uL Immature Gran # (Auto) 0.02 (0.01-0.20) K/uL Sodium 139 (136-145) mmol/L Potassium 3.7 (3.5-5.1) mmol/L Chloride 103 (98-107) mmol/L Carbon Dioxide 30 (21-32) mmol/L Anion Gap 6 (3-11) BUN 11 (6-23) mg/dl Creatinine 0.81 (0.6-1.2) mg/dl Est Cr Clr Drug Dosing 71.1 ml/min Est GFR ( Amer) 89.0 ml/min Est GFR (Non-Af Amer) 76.8 ml/min BUN/Creatinine Ratio 13.6 (10-20) Glucose 89 (70-99(Fasting)) mg/dl POC Glucose 91 104 H (70-99) mg/dl Estimat Average Glucose 128 mg/dl Hemoglobin A1c 6.1 H (4.5-5.6) % Calcium 9.4 (8.6-10.3) mg/dl 06/21/23 06/21/23 06/21/23 Range/Units 20:51 18:33 12:01 WBC (4.8-10.8) K/ul RBC (4.20-5.40) M/uL Hgb (12.0-16.0) g/dl Hct (37.0-47.0) % MCV (80.0-100.0) fL MCH (25.0-34.0) pg MCHC (32.0-36.0) g/dL RDW Std Deviation (36.4-46.3) fL RDW Coeff of Lobo (11.5-14.5) % Plt Count (130-400) K/uL MPV (9.4-12.4) fL Immature Gran % (Auto) % Neut % (Auto) % Lymph % (Auto) % [place] % (Auto) % Eos % (Auto) % Baso % (Auto) % Neut # (Auto) (1.40-6.50) K/uL Lymph # (Auto) (1.20-3.40) K/uL [place] # (Auto) (0.11-0.59) K/uL Eos # (Auto) (0.00-0.50) K/uL Baso # (Auto) (0.00-0.20) K/uL Immature Gran # (Auto) (0.01-0.20) K/uL Sodium (136-145) mmol/L Potassium (3.5-5.1) mmol/L Chloride (98-107) mmol/L Carbon Dioxide (21-32) mmol/L Anion Gap (3-11) BUN (6-23) mg/dl Creatinine (0.6-1.2) mg/dl Est Cr Clr Drug Dosing ml/min Est GFR ( Amer) ml/min Est GFR (Non-Af Amer) ml/min BUN/Creatinine Ratio (10-20) Glucose (70-99(Fasting)) mg/dl POC Glucose 98 82 96 (70-99) mg/dl Estimat Average Glucose mg/dl Hemoglobin A1c (4.5-5.6) % Calcium (8.6-10.3) mg/dl
[2023-06-22] MEDS ORDERED: KETOROLAC 30 MG/ML VIAL IV ONE (11:08)
[2023-06-22] MEDS ORDERED: SODIUM CHLORIDE 0.65% NA SOLN 45 ML (OCEAN) PRN (15:50)
[2023-06-22] MEDS ORDERED: KETOROLAC TROMETHAMINE 15 MG/ML VIAL IV PRN (20:28)
--- NOTE | 2023-06-22 20:29 | Hospitalist Progress Note ---
Date of Service June 22, 2023 Assessment & Plan (1) Small bowel obstruction: Plan: Likely on the basis of adhesions from prior abdominal/pelvic surgeries (appy, ROSALIO, BSO, etc). ?[address] a/p with possible closed loop obstruction? Either way SBO is resolving. +flatus. +stool. Appreciate gen surg consult and recs. NG tube clamped; trial passed; NG tube will be d/c. Defer diet management to surgery. Cont fluid but lower rate to 75cc/hr. Pain meds. Anti-emetics. (2) Hypertension: Plan: Holding PO meds. In david - hydralazine 5mg IV q8h. (3) Dyslipidemia: Plan: Hold zetia. (4) Hypothyroidism: Plan: Hold PO synthroid. If she remains NPO for a prolonged period of time then change to IV formulation and give at least 3 days/week. TSH wnl. (5) Diabetes: Plan: Hba1c 6.1% c/w pre-DM. She is aware of pre-DM diagnosis. Cont q6h BSGs. Loose novolog SSI coverage. (6) Arthritis: Plan: Knees, etc. Cont use of voltaren gel qid prn. (7) Hypercalcemia: Plan: 2nd to dehydration? 2nd to HCTZ use? Hold HCTZ. Isotonic fluids. Repeat total calcium level now normal. At d/c consider NOT resuming HCTZ. (8) Abnormal finding on lung imaging: Plan: Minimal patchy infiltrates are seen on the lung cuts from the CT abd/pelvis. These are in the RLL. She had copious vomiting prior to presentation - perhaps due to aspiration in the midst of vomiting?? Watch closely for development of a pneumonia process. Thus far none seen. Resp BioFire was fully negative. O2 sats in RA wnl. (9) DVT prophylaxis: Plan: Lovenox 40mg daily (10) Carotid stenosis, left: Plan: s/p CEA with patch per patient's recollection. Has had surveillance u/s or CTAs since her surgery? (done via [employer] system or [employer] system to her recollection) (11) Falls frequently: Plan: Patient is having episodes of dizziness which then lead to "hearing her blood thumping in her head" and getting abnormal sensations in her legs. These episodes then result in falls at home. Has had numerous falls of late. This led to a work-up including a tilt table test. The latter showed mild orthostatic hypotension. I am uncertain if orthostatic hypotension really explains these falls. In light of carotid disease at some point she should have CTAs head/neck. Can defer to outpatient setting. (12) Orthostatic hypotension: Plan: Recently underwent tilt table test showing mild orthostasis. [facility] for this? (jamari?) Plan appreciate gen surgery assistance recheck labs am progressing Admission and Anticipated Discharge Date Admission Date: June 21, 2023 Subjective had severe headache earlier in the day was "all over" the entire scalp, frontal region, etc improved/resolved s/p toradol IV surgery saw patient - NG tube clamped as she had a BM overnight and has been passing flatus since NG tube clamping no nausea or vomiting or worsening abdominal distension feeling much better Review of Systems Review of Systems: cv - no chest pain pulm - no dyspnea GI - no abd pain Physical Exam Physical Exam: gen - looks better today, NAD HENT - mouth with MMM, NG tube in place in nose but NG is clamped neck - no JVD heart - RRR, s1 s2, no murmur lungs - CTA b/l abd - soft, ND, BS+, NT, no HSM, no peritoneal signs ext - no edema, pulses 2+ b/l psych - a/o x 3 Results & Data Results & Data Vital Signs (Past 12 Hours) Vital Signs Temp Pulse Resp BP Pulse Ox O2 Del Method 06/22/23 15:55 36.9 C 94 H 16 158/80 H 93 Room Air 06/22/23 10:52 171/78 H Laboratory Results Laboratory Results - last 24 hr 06/21/23 06/21/23 06/22/23 20:51 23:56 05:49 WBC RBC Hgb Hct MCV MCH MCHC RDW Std Deviation RDW Coeff of Lobo Plt Count MPV Immature Gran % (Auto) Neut % (Auto) Lymph % (Auto) [place] % (Auto) Eos % (Auto) Baso % (Auto) Neut # (Auto) Lymph # (Auto) [place] # (Auto) Eos # (Auto) Baso # (Auto) Immature Gran # (Auto) Sodium Potassium Chloride Carbon Dioxide Anion Gap BUN Creatinine Est Cr Clr Drug Dosing Est GFR ( Amer) Est GFR (Non-Af Amer) BUN/Creatinine Ratio Glucose POC Glucose 98 104 H 91 Estimat Average Glucose Hemoglobin A1c Calcium 06/22/23 06/22/23 06/22/23 07:13 11:58 17:40 WBC 7.66 RBC 4.77 Hgb 12.4 Hct 38.4 MCV 80.5 MCH 26.0 MCHC 32.3 RDW Std Deviation 43.7 RDW Coeff of Lobo 15.0 H Plt Count 253 MPV 9.2 L Immature Gran % (Auto) 0.3 Neut % (Auto) 76.6 Lymph % (Auto) 12.5 [place] % (Auto) 9.4 Eos % (Auto) 0.9 Baso % (Auto) 0.3 Neut # (Auto) 5.87 Lymph # (Auto) 0.96 L [place] # (Auto) 0.72 H Eos # (Auto) 0.07 Baso # (Auto) 0.02 Immature Gran # (Auto) 0.02 Sodium 139 Potassium 3.7 Chloride 103 Carbon Dioxide 30 Anion Gap 6 BUN 11 Creatinine 0.81 Est Cr Clr Drug Dosing 71.1 Est GFR ( Amer) 89.0 Est GFR (Non-Af Amer) 76.8 BUN/Creatinine Ratio 13.6 Glucose 89 POC Glucose 84 77 Estimat Average Glucose 128 Hemoglobin A1c 6.1 H Calcium 9.4 PG Care Time/CCT Total # of Minutes Spent Total Time Spent with Patient: Total time spent is greater than 50% in coordination of care (as documented) at patient's floor/unit and/or counseling patient: Coding Level of Care Code 60094 SUB INP/OBS CARE 2/35MIN Diagnoses Small bowel obstruction K56.609 Hypertension I10 Dyslipidemia E78.5 Hypothyroidism E03.9 Diabetes E11.9 Arthritis M19.90 Hypercalcemia E83.52 Abnormal finding on lung imaging R91.8 DVT prophylaxis Z29.9 Carotid stenosis, left I65.22 Falls frequently R29.6 Orthostatic hypotension I95.1
[2023-06-23] MEDS: ACETAMINOPHEN 1,000 MG/100 ML VIAL IV PRN (03:25)
[2023-06-23] MEDS: hydrALAZINE HCL 20 MG/ML VIAL IV SCH (03:26)
[2023-06-23] MEDS: INSULIN ASPART PER UNIT CHARGE SC SCH ×4 (05:59→20:24)
[2023-06-23 08:46] LABS: BUN Creatinine Ratio 14.1 (10-20); Calcium 9.6 mg/dl (8.6-10.3); Creatinine Clr Calc Pharmacy 73.8 ml/min; Est GFR (African American) 93.1 ml/min; Est GFR (Non-African American) 80.3 ml/min; Potassium 3.6 mmol/L (3.5-5.1)
--- NOTE | 2023-06-23 09:15 | Surgery Progress Note ---
Date of Service June 23, 2023 Assessment & Plan (1) Small bowel obstruction: Plan: Her NG tube was removed yesterday and she has tolerated sips She has return of bowel function, initiate clears today and advance as tolerated If she continues to do well with her diet and bowel function, she can be discharged later today versus tomorrow We will follow while in the hospital Admission and Anticipated Discharge Date Admission Date: June 21, 2023 Subjective Patient seen and examined. She had a bowel movement. She is passing flatus. She denies nausea or vomiting. Has no abdominal pain at this point. Review of Systems Constitutional: no fever and no chills Gastrointestinal: no abdominal pain, no nausea and no vomiting Physical Exam Constitutional: WD/WN, vitals as above Gastrointestinal (Abdomen): Inspection/Auscultation: abdomen normal to inspection; abdomen not distended Percussion/Palpation: abdomen soft; abdomen nontender and no guarding Results & Data Vital Signs (Past 12 Hours) Vital Signs Temp Pulse Resp BP Pulse Ox O2 Del Method 06/23/23 07:21 36.8 C 102 H 16 146/86 H 96 Room Air 06/23/23 03:20 36.7 C 103 H 18 153/83 H 94 Room Air PG Care Time/CCT Total # of Minutes Spent Total Time Spent with Patient: Total time spent is greater than 50% in coordination of care (as documented) at patient's floor/unit and/or counseling patient: Coding Level of Care Code 77590 SUB INP/OBS CARE 09/06MIN Diagnoses Small bowel obstruction K56.609
[2023-06-23] MEDS ORDERED: Nursing to Pharmacy Communication SCH (09:30)
[2023-06-23] MEDS: ENOXAPARIN INJ 40 MG/0.4 ML SYR SQ SCH (09:58)
[2023-06-23] MEDS: DICLOFENAC SOD 1% GEL 100 GM TUBE EXT SCH ×4 (10:00→20:19)
[2023-06-23] MEDS: FLUTICASONE PROPIONATE NA SPR 16 GM BTL SCH ×2 (10:01→20:19)
[2023-06-23] MEDS ORDERED: LOSARTAN POTASSIUM 50 MG TAB PO SCH (10:30)
[2023-06-23] MEDS: POTASSIUM CHLORIDE 20 MEQ in LACTATED RINGER'S 1,000 ML IV SCH (10:38)
[2023-06-23] MEDS: PANTOprazole 40 MG in SYRINGE 0 ML IV SCH (11:13)
--- NOTE | 2023-06-23 17:10 | Hospitalist Progress Note ---
Date of Service June 23, 2023 Assessment & Plan (1) Small bowel obstruction: Plan: Likely on the basis of adhesions from prior abdominal/pelvic surgeries (appy, ROSALIO, BSO, etc). ?[address] a/p with possible closed loop obstruction? Either way SBO is resolving nicely. +flatus. +stool. Appreciate gen surg consult and recs. NG tube d/c on 06/22/23. Clears started this am --> tolerated, then advanced to full liquids. Can advance to low fiber tomorrow AM. Can stop IV fluids. Anti-emetics prn. BMP wnl this am. (2) Hypertension: Plan: STOP hydralazine 5mg IV q8h. Resume losartan. Hold HCTZ due to recent hypercalcemia. Follow BPs on losartan. (3) Dyslipidemia: Plan: Resume zetia. (4) Hypothyroidism: Plan: Resume synthroid in am. TSH this admission wnl. (5) Diabetes: Plan: Hba1c 6.1% c/w pre-DM. She is aware of pre-DM diagnosis. Cont q6h BSGs. Loose novolog SSI coverage but doubt she will need any coverage. (6) Arthritis: Plan: Knees, etc. Cont use of voltaren gel qid prn. (7) Hypercalcemia: Plan: total calcium level 10.6 at admission. 2nd to dehydration? 2nd to HCTZ use? Hold HCTZ. Repeat total calcium level now normal after holding HCTZ & giving IVF. At d/c consider NOT resuming HCTZ. (8) Abnormal finding on lung imaging: Plan: Minimal patchy infiltrates are seen on the lung cuts from the CT abd/pelvis. These are in the RLL. She had copious vomiting prior to presentation - perhaps due to aspiration in the midst of vomiting?? Watch closely for development of a pneumonia process. Again none seen. Resp BioFire was fully negative. O2 sats remain normal in room air. (9) DVT prophylaxis: Plan: Lovenox 40mg daily (10) Carotid stenosis, left: Plan: s/p CEA with patch per patient's recollection. Has had surveillance u/s or CTAs since her surgery? (done via [employer] system or [employer] system to her recollection) (11) Falls frequently: Plan: Patient is having episodes of dizziness which then lead to "hearing her blood thumping in her head" and getting abnormal sensations in her legs. These episodes then result in falls at home. Has had numerous falls of late. This led to a work-up including a tilt table test. The latter showed mild orthostatic hypotension. I am uncertain if orthostatic hypotension really explains these falls. In light of carotid disease at some point she should have CTAs head/neck. Can defer to outpatient setting. (12) Orthostatic hypotension: Plan: Recently underwent tilt table test showing mild orthostasis. [facility] (jamari?) Plan appreciate gen surgery assistance likely can d/c home tomorrow Admission and Anticipated Discharge Date Admission Date: June 21, 2023 Subjective she feels great +stool +copious flatus no abd pain, nausea, emesis, GERD symptoms ambulating w/o difficulty tolerated clears this am now on full liquids - excited to have some ice cream Review of Systems Review of Systems: gen - no fevers or chills cv - no chest pain pulm - no dyspnea Physical Exam Physical Exam: gen - looks great, NAD HENT - mouth with MMM neck - no JVD heart - RRR, s1 s2, no murmur lungs - CTA b/l abd - soft, ND, BS+, NT, no HSM, no peritoneal signs ext - no edema, pulses 2+ b/l psych - a/o x 3 Results & Data Results & Data Vital Signs (Past 12 Hours) Vital Signs Temp Pulse Resp BP Pulse Ox O2 Del Method 06/23/23 15:20 37.3 C 82 16 163/89 H 95 Room Air 06/23/23 07:21 36.8 C 102 H 16 146/86 H 96 Room Air Laboratory Results Laboratory Results - last 24 hr 06/23/23 06/23/23 06/23/23 05:53 07:42 11:44 Sodium 138 Potassium 3.6 Chloride 102 Carbon Dioxide 27 Anion Gap 9 BUN 11 Creatinine 0.78 Est Cr Clr Drug Dosing 73.8 Est GFR ( Amer) 93.1 Est GFR (Non-Af Amer) 80.3 BUN/Creatinine Ratio 14.1 Glucose 70 POC Glucose 81 73 Calcium 9.6 06/23/23 06/23/23 16:45 20:23 Sodium Potassium Chloride Carbon Dioxide Anion Gap BUN Creatinine Est Cr Clr Drug Dosing Est GFR ( Amer) Est GFR (Non-Af Amer) BUN/Creatinine Ratio Glucose POC Glucose 72 91 Calcium PG Care Time/CCT Total # of Minutes Spent Total Time Spent with Patient: Total time spent is greater than 50% in coordination of care (as documented) at patient's floor/unit and/or counseling patient: Coding Level of Care Code 64741 SUB INP/OBS CARE 2/35MIN Diagnoses Small bowel obstruction K56.609 Hypertension I10 Dyslipidemia E78.5 Hypothyroidism E03.9 Diabetes E11.9 Arthritis M19.90 Hypercalcemia E83.52 Abnormal finding on lung imaging R91.8 DVT prophylaxis Z29.9 Carotid stenosis, left I65.22 Falls frequently R29.6 Orthostatic hypotension I95.1
[2023-06-24] MEDS ORDERED: LEVOTHYROXINE SODIUM 125 MCG TABLET PO SCH (06:30)
[2023-06-24] MEDS: FLUTICASONE PROPIONATE NA SPR 16 GM BTL SCH (08:11)
[2023-06-24] MEDS: INSULIN ASPART PER UNIT CHARGE SC SCH ×2 (08:12→11:43)
[2023-06-24] MEDS: ENOXAPARIN INJ 40 MG/0.4 ML SYR SQ SCH (08:12)
[2023-06-24] MEDS: DICLOFENAC SOD 1% GEL 100 GM TUBE EXT SCH ×2 (08:12→12:10)
[2023-06-24 08:35] LABS: Creatinine Clr Calc Pharmacy 71.1 ml/min; Est GFR (Non-African American) 76.8 ml/min
[2023-06-24] MEDS ORDERED: EZETIMIBE 10 MG TAB PO SCH (09:00)
[2023-06-24] MEDS ORDERED: LOSARTAN POTASSIUM 50 MG TAB PO SCH (09:00)
[2023-06-24] MEDS ORDERED: PANTOprazole 40 MG TAB PO SCH (09:00)
[2023-06-24] MEDS ORDERED: buPROPion XL 150 MG TABCR PO SCH (09:00)
--- NOTE | 2023-06-24 10:54 | Surgery Progress Note ---
Date of Service June 24, 2023 Assessment & Plan (1) Small bowel obstruction: Plan: She is tolerating full liquids, advance to low fiber today If she tolerates a low fiber diet and continues to have bowel function she can be discharged later today Surgery will sign off at this time, please call with any questions or concerns Admission and Anticipated Discharge Date Admission Date: June 21, 2023 Subjective Patient seen and examined. Denies abdominal pain. She tolerated full liquids. Afebrile. She continues to have bowel movements. Review of Systems Constitutional: no fever and no chills Physical Exam Constitutional: WD/WN, vitals as above Gastrointestinal (Abdomen): Inspection/Auscultation: abdomen normal to inspection; abdomen not distended Percussion/Palpation: abdomen soft; abdomen nontender and no guarding Results & Data Vital Signs (Past 12 Hours) Vital Signs Temp Pulse Resp BP Pulse Ox O2 Del Method 06/24/23 07:18 36.8 C 96 H 16 162/83 H 96 Room Air PG Care Time/CCT Total # of Minutes Spent Total Time Spent with Patient: Total time spent is greater than 50% in coordination of care (as documented) at patient's floor/unit and/or counseling patient: Coding Level of Care Code 98045 SUB INP/OBS CARE 09/06MIN Diagnoses Small bowel obstruction K56.609
[2023-06-24] MEDS ORDERED: SUCRALFATE 1 GM/10 ML UDC PO STA (11:08)
--- NOTE | 2023-06-24 11:46 | XRay Report ---
KUB HISTORY: Small bowel obstruction. Follow-up. COMPARISON: KUB 06/21/2023. FINDINGS: Continued improvement in the small bowel dilatation. There are no dilated loops of small tara wel identified at this time. Normal caliber colon filled with gas and stool. Nasogastric tube is been removed in the interval. The lung bases are clear. No renal calculi. No ureteral calculi. No pneumo peritoneum or pneumatosis. IMPRESSION: Interval resolution of the dilated loops of small bowel ACT 112: Negative or not required by law. Electronically signed by: Lorenzo Young M.D. 06/24/2023 11:44 AM
--- NOTE | 2023-06-24 12:42 | Discharge Summary ---
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 Denies any fevers/chills/dyspnea/cough/chest pain/hematemesis/bilious emesis/BRBPR. She had noted increased burping throughout the day yesterday prior to the abdominal pain & N/V starting. She drove herself to the ER here early this am due to the above symptoms. CT abd/p kedar shows a SBO with 2 transition points per radiology. During my assessment she just had her NG tube inserted. She has not vomited since arrival to the ER. Discharge Exam gen - looks great, NAD HENT - mouth with MMM neck - no JVD heart - RRR, s1 s2, no murmur lungs - CTA b/l abd - soft, ND, BS+, NT, no HSM, no peritoneal signs ext - no edema, pulses 2+ b/l psych - a/o x 3 Discharge Data Allergies Allergy/AdvReac Type Severity Reaction Status Date / Time adhesive Allergy blistering Unverified 06/21/23 08:49 on skin [id number] Reductase Allergy liver Unverified 06/21/23 08:49 Inhibitor enzymes go "crazy" Consultations 06/21/23 07:46 Consult General Surgery Stat 06/21/23 08:05 ED Decision to Admit Stat Ordered Studies 06/21/23 05:29 CT abd pelvis IV con only Stat Hospital Course (1) Small bowel obstruction: Likely on the basis of adhesions from prior abdominal/pelvic surgeries (appy, ROSALIO, BSO, etc). ?[address] a/p with possible closed loop obstruction? Either way SBO is resolving nicely. +flatus. +stool. Appreciate gen surg consult and recs. NG tube d/c on 06/22/23. Clears started this am --> tolerated, then advanced to full liquids. Can advance to low fiber tomorrow AM. Can stop IV fluids. Anti-emetics prn. BMP wnl this am. (2) Hypertension: STOP hydralazine 5mg IV q8h. Resume losartan. Hold HCTZ due to recent hypercalcemia. Follow BPs on losartan. (3) Dyslipidemia: Resume zetia. (4) Hypothyroidism: Resume synthroid in am. TSH this admission wnl. (5) Diabetes: Hba1c 6.1% c/w pre-DM. She is aware of pre-DM diagnosis. Cont q6h BSGs. Loose novolog SSI coverage but doubt she will need any coverage. (6) Arthritis: Knees, etc. Cont use of voltaren gel qid prn. (7) Hypercalcemia: total calcium level 10.6 at admission. 2nd to dehydration? 2nd to HCTZ use? Hold HCTZ. Repeat total calcium level now normal after holding HCTZ & giving IVF. At d/c consider NOT resuming HCTZ. (8) Abnormal finding on lung imaging: Minimal patchy infiltrates are seen on the lung cuts from the CT abd/pelvis. These are in the RLL. She had copious vomiting prior to presentation - perhaps due to aspiration in the midst of vomiting?? Watch closely for development of a pneumonia process. Again none seen. Resp BioFire was fully negative. O2 sats remain normal in room air. (9) DVT prophylaxis: Lovenox 40mg daily (10) Carotid stenosis, left: s/p CEA with patch per patient's recollection. Has had surveillance u/s or CTAs since her surgery? (done via [employer] system or [employer] system to her recollection) (11) Falls frequently: Patient is having episodes of dizziness which then lead to "hearing her blood thumping in her head" and getting abnormal sensations in her legs. These episodes then result in falls at home. Has had numerous falls of late. This led to a work-up including a tilt table test. The latter showed mild orthostatic hypotension. I am uncertain if orthostatic hypotension really explains these falls. In light of carotid disease at some point she should have CTAs head/neck. Can defer to outpatient setting. (12) Orthostatic hypotension: Recently underwent tilt table test showing mild orthostasis. [facility]? (jamari?) Plan appreciate gen surgery assistance likely can d/c home tomorrow Discharge Plan Discharge Items Patient Disposition: Home - Self-Care Reason For Visit: Small Bowel Obstruction Discharge Diagnosis: 1. Small bowel obstruction/blockage - resolved 2. Severe GERD (reflux disease) 3. Hypertension 4. High calcium level at admission; resolved with IV fluids. Dehydration, hydrochlorothiazide, and use of Tums likely all contributed 5. Hypothyroidism 6. 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 Adhesions (scar tissue inside the abdominal cavity) are the most common cause of a SBO. People develop adhesions as a result of prior intra-abdominal surgeries. You improved with an NG tube, IV fluids, bowel rest, and time. General surgery provided assistance with your care while here. You ultimately were resumed on a clear liquid diet, and this was advanced to low fiber diet. You are moving your bowels and your x-ray on 06/24/23 shows resolution of the SBO. We discussed your reflux disease in detail and you have severe disease. 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 Finally, upon arrival to [facility], your calcium level was elevated. As noted above it may have been caused by your hydrochlorothiazide, dehydration, and perhaps even use of Tums. Recommendations - 1. Low fiber diet x 10 days. See handout. 2. High blood pressure - * STOP your losartan-hydrochlorothiazide * START losartan by itself 100mg once daily; first dose 06/25/23 * keep a log of your blood pressures at home and show these to your family doctor * you may need something to replace the hydrochlorothiazide if your blood pressures are high off of it 3. High calcium - * again we are taking you off the hydrochlorothiazide as a precautionary measure * please avoid use of Tums for now (see discussion below) as Tums are made of calcium * please HOLD your vitamin D supplement for now * have your family doctor repeat your calcium level at time of follow-up 4. Reflux / GERD - * please avoid use of TUMS * in its place you can take carafate (sucralfate) 1 gram prior to meals as needed for reflux symptoms * see handout on tips to reduce GERD symptoms * talk to your family doctor about getting a referral to gastroenterology to have another upper endoscopy (EGD) 5. if you have nausea - ondansetron 4mg every 6 hours as needed for nausea/vomiting 6. Please talk with your family doctor about getting CT scans of the blood vessels of your head and neck in light of your dizzy spells. These are called "CTAs of the head & neck" [facility] Return to [facility] if - * you have any symptoms that remind you of your bowel blockage (prolific vomiting, abdominal pain, lack of passing gas or stool from your rectum, etc) * you have fever over 100 degrees * you are short of breath * you have severe dizziness, feel like you could pass out, or actually pass out * any other concern It was our pleasure to care for you! Pending Studies at Discharge: No Stand-Alone Forms: My [facility], Smoking Cessation Medications and DC Order Prescriptions: New ondansetron 4 mg tablet,disintegrating 4 mg PO Q6H PRN (Reason: nausea and vomiting) Qty: 10 0RF sucralfate [Carafate] 1 gram tablet 1 g PO AC PRN (Reason: acid reflux symptoms) Qty: 30 0RF losartan 100 mg tablet 100 mg PO DAILY Qty: 30 1RF Continued ezetimibe 10 mg tablet 10 mg PO DAILY fluticasone propionate 50 mcg/actuation spray,suspension 1 sprays INTNAS DAILY diclofenac sodium 1 % gel 2 gm TOP QID PRN (Reason: Pain) Biofreeze (menthol) 4 % gel 1 appln TOP TID PRN (Reason: Pain) aspirin 81 mg tablet,delayed release (DR/EC) 81 mg PO DAILY hydrocodone-acetaminophen 5-325 mg tablet 1 - 2 tab PO Q6H PRN (Reason: pain) Qty: 12 0RF Rx Instructions: Initial Treatment levothyroxine 125 mcg Tablet 125 mcg PO DAILY Hair,Skin and Nails Tablet 1 tab PO DAILY bupropion HCl 150 mg Tablet Extended Release 24 Hr 150 mg PO QAM dexlansoprazole [Dexilant] 30 mg Capsule,Biphase Delayed Releas 30 mg PO DAILY Saline Mist See Rx Instructions .ROUTE .COMPLEX Rx Instructions: Flush sinuses twice a day Vitamin B12 Liquid 0.5 mg PO DAILY Discontinued losartan-hydrochlorothiazide 100-25 mg tablet 1 tab PO DAILY cholecalciferol (vitamin D3) [Vitamin D3] 50 mcg (2,000 unit) capsule 100 mcg PO DAILY Discharge Orders: Discharge Order (Routine); Ordered 06/24/23 Ordered By: David Campbell/Other Patient Handouts: A1C, Small Bowel Obstruction, Low-Fiber Diet, Tips to Control Acid Reflux Admission Data Admit Date/Time: 06/21/23 08:04 Attending Provider: David Beckman Admit Provider: David Beckman Primary Care Provider: [facility] Other Providers: Andrew Dalton; David Beckman Coding Diagnoses Small bowel obstruction K56.609 Hypertension I10 Dyslipidemia E78.5 Hypothyroidism E03.9 Diabetes E11.9 Arthritis M19.90 Hypercalcemia E83.52 Abnormal finding on lung imaging R91.8 DVT prophylaxis Z29.9 Carotid stenosis, left I65.22 Falls frequently R29.6 Orthostatic hypotension I95.1
== END 2023-06-24 14:06 | disposition home or self-care (01) | DRG 390 ==
LOC: ED 03:44 → 3W 08:04